=== PATIENT | male | born 1955 | race Caucasian/White ===

== ENCOUNTER 2018-06-13 16:56 | Emergency (ER) | payer OTHER ==
[2018-06-13 17:13] VITALS: BP 140/82; RESP 18; TEMP 98.1; O2SAT 98
--- NOTE | 2018-06-13 17:42 | ED PDOC ---
Addendum entered and electronically signed by Alex LYNCH,Ramona José PA-C 06/15/18 16:51: Addendum Addendum: 06/15/18 16:49 Pt called, notified of results of his US. States that he has an appointment with the clinic at [place] next week for follow up. Pt advised to obtain a copy of US results at medical records to bring with him to his appointment at the clinic. Otherwise, the pt states that he feels well and does not have CP, SOB or abdominal pain. Pt verbalize understanding of information and instructions given to him. Addendum entered and electronically signed by Amy Guadarrama PA 06/14/18 16:30: Addendum Addendum: 06/14/18 16:26 IMPRESSION: Large irregular complex collection within the central spleen suspected to reflect hematoma possibly with superimposed infection. Incidental note is made of left pleural effusion. Echogenic liver may be seen in setting of hepatic parenchymal disease or fatty infiltration. Preliminary impression was provided by [facility]. Above US report was called in by Dr. Ramos. Called pt and was able to reach him. Left a VM with the spouse who called back and gave a phone number [phone] to reach patient. She was also advised to have patient call. I called patient back and left a VM instructing him to call the ED back for a critical finding in his US from last night. Dr. Prabhakar was also made aware of this. Original Note: Arrival/HPI - General Chief Complaint: Abdominal Pain Time Seen by Provider: 06/13/18 17:20 Historian: Patient - History of Present Illness Narrative History of Present Illness (Text): 06/13/18 17:37 62 yo M w/ PMH of diabetes, presents complaining of L lower lateral rib pain and LUQ pain which started suddenly when he was about to lay down onto his bed 2 days ago, since the pain has been intermittent, worse at times with eating. He adds that 2 months ago [place] was brought to [facility] in [place], he sustained rib fractures to both ribs and a splenic laceration which was cauterized through IR. He reports since his accident he has not followed up with the clinic at [place]. Otherwise he reports no fever, chills, chest pain, shortness of breath, nausea, vomiting, diarrhea, urinary symptoms, back pain, other trauma or injury. D RUST Past Medical History - Endocrine/Metabolic Hx Diabetes Mellitus Type 2: Yes - Psychiatric Hx Substance Use: No - Surgical History Other/Comment: Laser surgery to spleen Family/Social History Family/Social History: Unknown Family HX Smoking Status: Never Smoked Hx Alcohol Use: Yes Frequency of alcohol use: Socially Hx Substance Use: No Allergies/Home Meds Allergies/Adverse Reactions: Allergies No Known Allergies Allergy (Verified 06/13/18 17:13) Review of Systems - Review of Systems Constitutional: absent: Fatigue, Fevers Respiratory: absent: SOB, Cough Cardiovascular: absent: Chest Pain, Palpitations Gastrointestinal: Abdominal Pain. absent: Nausea, Vomiting Genitourinary Male: absent: Dysuria, Frequency Musculoskeletal: Other (L rib pain). absent: Arthralgias, Back Pain, Neck Pain Skin: absent: Rash, Pruritis Neurological: absent: Headache, Dizziness Physical Exam Vital Signs Temp Pulse Resp BP Pulse Ox 06/13/18 17:10 98.1 F 97 H 18 140/82 98 Temperature: Afebrile Blood Pressure: Normal Pulse: Regular Respiratory Rate: Normal Appearance: Positive for: Well-Appearing, Non-Toxic, Comfortable Pain Distress: Mild Mental Status: Positive for: Alert and Oriented X 3 - Systems Exam Head: Present: Atraumatic, Normocephalic Pupils: Present: PERRL Extroacular Muscles: Present: EOMI Conjunctiva: Present: Normal Mouth: Present: Moist Mucous Membranes Neck: Present: Normal Range of Motion. No: MIDLINE TENDERNESS Respiratory/Chest: Present: Clear to Auscultation, Good Air Exchange, Tender to Palpation (+mild tenderness to palpation to the L lower lateral ribs). No: Respiratory Distress, Accessory Muscle Use Cardiovascular: Present: Regular Rate and Rhythm, Normal S1, S2. No: Murmurs Abdomen: No: Tenderness, Distention, Peritoneal Signs, Rebound, Guarding, Mass/Organomegaly, Scars Back: Present: Normal Inspection. No: CVA Tenderness, Midline Tenderness Upper Extremity: Present: Normal Inspection. No: Cyanosis, Edema Lower Extremity: Present: Normal Inspection. No: Edema Neurological: Present: GCS=15, CN II-XII Intact, Speech Normal, Motor Func Grossly Intact, Normal Sensory Function Skin: Present: Warm, Dry, Normal Color. No: Rashes Psychiatric: Present: Alert, Oriented x 3, Normal Insight, Normal Concentration Medical Decision Making ED Course and Treatment: 06/13/18 17:36 Plan : - Labs - IV - Urinalysis - XR L ribs - US abdomen - Pepcid IV Labs reviewed : glucose 363, rest of the labs wnl. Patient given NS bolus IV. 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 06/13/18 22:27 XR L ribs : +fracture of the 7th and 8th rib, no pneumothorax, +small L pleural effusion. US abdomen : 1. splenomegaly 2. fatty liver 3. no fluid is seen in the RLQ and LLQ 4. left pleural effusion As read by Yuri Alaniz MD 06/13/18 21:06 Repeat FS 230 On re-evaluation, patient reports no cp, sob, abdominal pain, n/v. On exam, patient remains AAOx3, in no acute distress. Abdomen soft, non-tender, repeat neuro exam shows no focal findings. Diagnostic results d/w the patient in great detail. Diagnosis of left rib fractures d/w the patient. Based on history, exam and diagnostic results, plan will be for outpatient follow up. Patient instructed to follow-up with the clinic in 1-2 days without fail. Advised to take medication as prescribed. Return to the emergency room at any time for any new or worsening symptoms. Patient states he fully agrees with and understands discharge instructions. States that he agrees with the plan and disposition. Verbalized and repeated discharge instructions and plan. I have given the patient opportunity to ask any additional questions. - RAD Interpretation Radiology Orders: 06/13/18 17:34 ABDOMEN COMPLETE [US] Stat 06/13/18 17:35 RIBS LEFT & PA CHEST [RAD] Stat - PA / TEACHER ASSISTANT / Resident Statement MD/DO has reviewed & agrees with the documentation as recorded. Disposition/Present on Arrival - Present on Arrival Any Indicators Present on Arrival: No History of DVT/PE: No History of Uncontrolled Diabetes: No Urinary Catheter: No History of Decub. Ulcer: No History Surgical Site Infection Following: None - Disposition Have Diagnosis and Disposition been Completed?: Yes Diagnosis: Left rib fracture Disposition: HOME/ ROUTINE Disposition Time: 22:00 Patient Plan: Discharge Patient Problems: Current Active Problems Problem Status Onset Left rib fracture Acute Condition: STABLE Discharge Instructions (ExitCare): Rib Fractures in Adults Additional Instructions: Thank you for letting us take care of you today. You were treated for left rib fracture. The emergency medical care you received today was directed at your acute symptoms. If you were prescribed any medication, please fill it and take as directed. It may take several days for your symptoms to resolve. Return to the Emergency Department if your symptoms worsen, do not improve, or if you have any other problems. Please contact your doctor in 2 days for re-evaluation and follow up / or call one of the physicians/clinics you have been referred to that are listed on the Patient Visit Information form that is included in your discharge packet. Bring any paperwork you were given at discharge with you along with any medications you are taking to your follow up visit. Our treatment cannot replace ongoing medical care by a primary care provider (PCP) outside of the emergency department. Thank you for allowing the [facility] team to be part of your care today. If you had an X-Ray : A Radiologist will review the ED reading if any change in treatment is needed we will contact you. Prescriptions: Naproxen 500 mg PO BID PRN #20 tablet PRN Reason: Pain, Moderate (4-7) Referrals: Brendan Aguillon Ae, [facility]ER [Primary Care Provider] - Follow up with primary Forms: [facility] (Japanese), WORK NOTE
[2018-06-13 18:56] LABS: INR 1.13; PARTIAL THROMBOPLASTIN TIME 28.1 Seconds (25.1-36.5); PROTHROMBIN TIME 12.9 SECONDS (9.4-12.5)
[2018-06-13 18:58] LABS: BASO # 0.03 K/mm3 (0.0-2.0); BASO % 0.3 % (0.0-3.0); EOS # 0.1 (0.0-0.7); EOS % 1.6 % (1.5-5.0); GRAN # 6.52 (1.4-6.5); GRAN % 72.3 % (50.0-68.0); HEMOGLOBIN 11.5 g/dL (14.0-18.0); LYMPH # 1.6 (1.2-3.4); LYMPH % 17.4 % (22.0-35.0); MEAN CELL VOLUME 85.2 fl (80.0-105.0); MEAN CORPUSCULAR HEMOGLOBIN 27.4 pg (25.0-35.0); MEAN CORPUSCULAR HGB CONC 32.2 g/dl (31.0-37.0); MEAN PLATELET VOLUME 11.6 fl (7.0-11.0); MONO # 0.8 (0.1-0.6); MONO % 8.4 % (1.0-6.0); RBC 4.19 10^6/uL (3.5-6.1); RED CELL DISTRIBUTION WIDTH 13.1 % (11.5-14.5)
[2018-06-13 19:11] LABS: ALBUMIN 3.7 g/dL (3.0-4.8); ALT/SGPT 26 U/L (7-56); AST/SGOT 20 U/L (17-59); BLOOD UREA NITROGEN 13 mg/dL (7-21); CALCIUM 8.9 mg/dL (8.4-10.5); GFR NON-AFRICAN AMERICAN > 60; LIPASE 89 U/L (23-300)
[2018-06-13] MEDS ORDERED: Sodium Chloride 0.9% 1,000 ML IV STA (19:55)
[2018-06-13 21:01] LABS: URINE BILIRUBIN NEGATIVE (NEGATIVE); URINE BLOOD NEGATIVE (NEGATIVE); URINE GLUCOSE (UA) >=1000 mg/dL (NEGATIVE); URINE LEUKOCYTE ESTERASE NEGATIVE Leu/uL (NEGATIVE); URINE PROTEIN NEGATIVE mg/dL (<30 mg/dL)
[2018-06-13 21:05] LABS: URINE APPEARANCE CLEAR (CLEAR); URINE COLOR LIGHT YELLOW (YELLOW)
[2018-06-13 22:32] VITALS: PULSE 80
--- NOTE | 2018-06-14 11:26 | US ---
HISTORY: LUQ pain, h/o splenic lac 2 months ago COMPARISON: None available. TECHNIQUE: Sonographic evaluation of the abdomen. FINDINGS: LIVER: Measures 14.3 cm in sagittal dimension. Echogenic liver may be seen in setting of hepatic parenchymal disease or fatty infiltration. No focal hepatic mass identified. The main portal vein appears patent with normal directional flow. No intrahepatic bile duct dilatation. GALLBLADDER: No gallstones. No gallbladder wall thickening. Negative sonographic Mcbride's sign as assessed by the line welder. COMMON BILE DUCT: Measures 5 mm. PANCREAS: Not well visualized. RIGHT KIDNEY: Measures 10.9 x 5.3 x 5.7cm. No obstructing calculus or hydronephrosis identified. LEFT KIDNEY: Measures 12.7 x 5.8 x 6.1cm. No obstructing calculus or hydronephrosis identified. SPLEEN: Measures approximately 13.1 cm. Large irregular complex collection noted within the central spleen with evidence of gas bubbles. AORTA: Limited views appear unremarkable. IVC: Limited views appear unremarkable. OTHER FINDINGS: Incidental note is made of left pleural effusion. IMPRESSION: Large irregular complex collection within the central spleen suspected to reflect hematoma possibly with superimposed infection. Incidental note is made of left pleural effusion. Echogenic liver may be seen in setting of hepatic parenchymal disease or fatty infiltration. Preliminary impression was provided by [facility]. Findings discussed with ALESSIO Guadarrama on 06/14/18 at 11:21 a.m.
--- NOTE | 2018-06-14 13:29 | RAD ---
Date of service: 06/13/2018 PROCEDURE: Radiographs of the Chest and Left Ribs. HISTORY: pain, h/o L rib fractures 2 months ago COMPARISON: None available. TECHNIQUE: Frontal radiograph of the chest and multiple oblique radiographs of the left ribs were obtained. FINDINGS: LEFT RIBS: No fracture or focal lesion visualized. LUNGS: Clear. PLEURA: No pneumothorax or pleural fluid. CARDIOVASCULAR: Normal sized heart. No pulmonary vascular congestion. No atherosclerotic calcification present OTHER FINDINGS: None. IMPRESSION: Unremarkable radiographs of the chest and left ribs. No left rib fracture.
== END 2018-06-13 22:30 | disposition home or self-care (01) ==
LOC: ED 16:56
DX: S22.42XD Multiple fractures of ribs, left side, subsequent encounter for fracture with routine healing (principal); V49.9XXD Car occupant (driver) (passenger) injured in unspecified traffic accident, subsequent encounter
CPT/HCPCS: 71101; 76700; 80053; 81003; 82948; 83690; 83735; 85025; 85610; 85730; 96374; 99283; J7030